=== PATIENT | female | born 1970 | race Hispanic/Latino ===

== ENCOUNTER 2017-09-20 17:31 | Observation (INO) | payer OTHER, SELFPAY ==
[~2017-09-20 17:31] MED LIST: ISOVUE-370 76%-LOCM 1 ML ONE
[2017-09-20] MEDS ORDERED: Fentanyl 100 MCG/2 ML VIAL ONE (17:44)
[2017-09-20 17:55] LABS: Hematocrit 36.4 % (36.0-47.0); Mean Platelet Volume 11.1 fL (7.4-10.4); White Blood Cell (WBC) Count 14.1 thou/uL (4.8-10.8)
[2017-09-20 18:04] LABS: PTT 22.9 SEC (22.9-36.1); Prothrombin Time 13.1 SEC (12.0-14.7)
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
[2017-09-20 18:17] LABS: ALT (SGPT) 79 U/L (8-55); AST (SGOT) 109 U/L (5-34); Alkaline Phosphatase 99 U/L (40-150); Anion Gap 14 mmol/L (10-20); BUN (Urea Nitrogen) 8 mg/dL (7.0-18.7); Bilirubin, Total 0.4 mg/dL (0.2-1.2); CK (CPK) 150 U/L (29-168); Calc. Creatinine Clearance 0 mL/min (70-130); Calcium 8.1 mg/dL (7.8-10.44); Carbon Dioxide 22 mmol/L (22-29); Chloride 103 mmol/L (98-107); Estimated GFR-MDRD 81; Globulin 4.2 g/dL (2.4-3.5); Lipase 10 U/L (8-78); Protein, Total 7.8 g/dL (6.0-8.3)
[2017-09-20] MEDS ORDERED: Ondansetron HCl/PF 4 MG/2 ML Vial ONE ×2 (18:19→18:20)
[2017-09-20] MEDS ORDERED: Adacel (T-DAP) 0.5 ML VIAL ONE (18:19)
[2017-09-20 18:20] LABS: #Basophils 0.1 thou/uL (0.0-0.2); #Eosinphils 0.2 thou/uL (0.0-0.7); #Lymphocytes 2.5 thou/uL (1.20-3.40); #Monocytes 0.6 thou/uL (0.11-0.59); #Neutrophils 10.6 thou/uL (1.40-6.50); %Basophils 0.9 % (0.0-1.0); %Eosinophils 1.6 % (0.0-10.0); %Lymphocytes 17.7 % (21.0-51.0); %Monocytes 4.4 % (0.0-10.0); Anisocytosis SLIGHT = 6-15 cells (100X) (0-5/hpf); Hypochromia SLIGHT = 6-15 cells (100X) (0-5/hpf); Microcytosis SLIGHT = 6-15 cells (100X) (0-5/hpf); Ovalocytes SLIGHT = 2-5 cells (100X) (0-1/hpf)
[2017-09-20 18:21] LABS: Troponin I Less than 0.010 ng/mL (< 0.028)
[2017-09-20] MEDS ORDERED: Lorazepam 2 MG/ML VIAL ONE (18:35)
[2017-09-20] MEDS ORDERED: Lidocaine 1% (PF) 30 ML VIAL ONE (18:35)
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
[2017-09-20] MEDS ORDERED: Ketorolac Tromethamine 30 MG/ML VIAL ONE (19:24)
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
[2017-09-20 19:59] LABS: Bilirubin Negative (Negative); Blood, Urine Negative (Negative); Glucose, Urine (Dipstick) >=1000 mg/dL (Negative); Ketone, Urine 40 mg/dL (Negative); Nitrite Negative (Negative); Protein, Urine (Dipstick) Negative (Neg-Trace); Urobilinogen 0.2 mg/dL (0.2-1.0)
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
[2017-09-20] MEDS ORDERED: Ondansetron ODT 4 MG TAB SL PRN (21:03)
[2017-09-20] MEDS ORDERED: Morphine 2 MG/ML SYRINGE SLOW IVP PRN ×3 (21:03→21:13)
[2017-09-20] MEDS ORDERED: Ondansetron HCl/PF 4 MG/2 ML Vial IVP PRN ×2 (21:03→21:13)
[2017-09-20] MEDS ORDERED: Dextrose 50% Abboject 50 ML SYRINGE SLOW IVP PRN (21:13)
[2017-09-20] MEDS ORDERED: Dextrose 5% in Water 1,000 ML IV PRN (21:13)
[2017-09-20] MEDS ORDERED: Ondansetron ODT 4 MG TAB PO PRN (21:13)
[2017-09-20] MEDS ORDERED: Rib Fracture Protocol IV SCH (21:13)
[2017-09-20] MEDS ORDERED: Sodium Chloride 0.9% 1,000 ML IV SCH (21:15)
[2017-09-20] MEDS ORDERED: Famotidine 20 MG TAB PO SCH (21:30)
[2017-09-20] MEDS: Sodium Chloride 0.9% 1,000 ML IV SCH (21:54)
[2017-09-20 22:21] VITALS: BMI 35.4
[2017-09-20] MEDS: Ketorolac Tromethamine 30 MG/ML VIAL IVP SCH (23:26)
[2017-09-20] MEDS: Acetaminophen 650 MG Suppository PR SCH (23:28)
[2017-09-21] MEDS: Ketorolac Tromethamine 30 MG/ML VIAL IVP SCH ×3 (05:36→18:52)
[2017-09-21] MEDS: Sodium Chloride 0.9% 1,000 ML IV SCH ×3 (05:37→20:30)
[2017-09-21] MEDS: HumaLOG 300 UNITS/3 ML VIAL SC PRN (06:26)
[2017-09-21] MEDS: Acetaminophen 650 MG Suppository PR SCH ×3 (06:37→18:52)
[2017-09-21 06:50] LABS: #Eosinphils 0.1 thou/uL (0.0-0.7); #Lymphocytes 1.8 thou/uL (1.20-3.40); #Monocytes 0.5 thou/uL (0.11-0.59); #Neutrophils 6.2 thou/uL (1.40-6.50); %Basophils 0.4 % (0.0-1.0); %Eosinophils 0.6 % (0.0-10.0); %Lymphocytes 20.6 % (21.0-51.0); %Monocytes 5.4 % (0.0-10.0); Hematocrit 30.2 % (36.0-47.0); Mean Platelet Volume 10.9 fL (7.4-10.4); Red Blood Cell (RBC) Count 4.54 mill/uL (4.20-5.40); White Blood Cell (WBC) Count 8.5 thou/uL (4.8-10.8)
[2017-09-21 07:08] LABS: Anion Gap 9 mmol/L (10-20); BUN (Urea Nitrogen) 5 mg/dL (7.0-18.7); Calc. Creatinine Clearance 163 mL/min (70-130); Calcium 7.7 mg/dL (7.8-10.44); Carbon Dioxide 22 mmol/L (22-29); Chloride 107 mmol/L (98-107); Estimated GFR-MDRD Greater than 90
[2017-09-21 07:29] LABS: Hypochromia MODERATE=16-30 cells (100X) (0-5/hpf); Microcytosis MODERATE=15-30 cells (100X) (0-5/hpf); Ovalocytes SLIGHT = 2-5 cells (100X) (0-1/hpf); Polychromasia SLIGHT = 2-3 cells (100X) (0-2/hpf)
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
[2017-09-21] MEDS ORDERED: FLU VACC QS2017-18 36 mo. & older 0.5 ML SYRINGE IM ONE (09:00)
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
[2017-09-21] MEDS: Famotidine 20 MG TAB PO SCH ×2 (10:54→21:14)
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
[2017-09-21] MEDS ORDERED: Fentanyl 100 MCG/2 ML VIAL ONE ×2 (17:32→19:49)
[2017-09-21] MEDS ORDERED: Midazolam HCl 2 mg/2 ml Vial ONE (17:39)
[2017-09-21] MEDS ORDERED: Ondansetron HCl/PF 4 MG/2 ML Vial ONE (18:08)
[2017-09-21] MEDS ORDERED: Glycopyrrolate 0.2 MG/ML 5 ML SYRINGE ONE (18:08)
[2017-09-21] MEDS ORDERED: Lidocaine 2% PF 10 ML AMP (For Epidural Use) ONE (18:08)
[2017-09-21] MEDS ORDERED: Propofol 200 MG/20 ML VIAL ONE (18:08)
[2017-09-21] MEDS ORDERED: Dexamethasone 20 MG/5 ML VIAL ONE (18:08)
[2017-09-21] MEDS ORDERED: Promethazine HCl 25 MG/ML VIAL SLOW IVP PRN (19:25)
[2017-09-21] MEDS ORDERED: Ondansetron HCl/PF 4 MG/2 ML Vial IVP PRN (19:25)
[2017-09-21] MEDS ORDERED: Promethazine HCl 25 MG/ML VIAL IM PRN (19:25)
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
[2017-09-21] MEDS: CEFAZOLIN/Water 2 GM/20 ML SYRINGE SLOW IVP SCH (22:31)
[2017-09-22] MEDS: Ketorolac Tromethamine 30 MG/ML VIAL IVP SCH ×2 (00:52→06:13)
[2017-09-22] MEDS: Acetaminophen 650 MG Suppository PR SCH ×2 (00:52→06:11)
[2017-09-22] MEDS: HumaLOG 300 UNITS/3 ML VIAL SC PRN ×3 (00:57→11:07)
[2017-09-22] MEDS: CEFAZOLIN/Water 2 GM/20 ML SYRINGE SLOW IVP SCH (06:14)
[2017-09-22] MEDS: Sodium Chloride 0.9% 1,000 ML IV SCH ×2 (06:19→14:13)
[2017-09-22] MEDS: Ibuprofen 600 MG TAB PO SCH ×2 (07:12→14:17)
[2017-09-22] MEDS: Acetaminophen 500 MG TAB PO SCH ×2 (07:12→14:13)
[2017-09-22] MEDS: traMADol HCl 50 MG TAB PO SCH ×2 (07:12→14:12)
[2017-09-22] MEDS ORDERED: metFORMIN 500 MG TAB PO SCH (08:00)
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
[2017-09-22] MEDS: Famotidine 20 MG TAB PO SCH (08:56)
[2017-09-22] MEDS ORDERED: HYDROcodone/Acetaminophen 10/325 mg Tablet PO PRN ×2 (10:30)
[2017-09-22 15:46] VITALS: BP 107/72; TEMP 98.1
--- NOTE | 2017-09-30 16:46 | EKG ---
Test Reason : Blood Pressure : / mmHG Vent. Rate : 086 BPM Atrial Rate : 086 BPM P-R Int : 150 ms QRS Dur : 092 ms QT Int : 414 ms P-R-T Axes : 042 -73 034 degrees QTc Int : 495 ms Normal sinus rhythm Left anterior fascicular block Prolonged QT Abnormal ECG Confirmed by RITA URIAS, ESTHER ([id number]), greeting card editor CORINNE BRITO ([id number]) on 09/30/2017 4:46:01 PM Referred By: Confirmed By:ESTHER SALINAS MD
== END 2017-09-22 16:52 | disposition home or self-care (01) ==
LOC: ERS 17:31 → SURG B 20:34
PROVIDERS: ADMIT Surgery; ATTEND Surgery
PROC: 0PSH04Z Reposition Right Radius with Internal Fixation Device, Open Approach (ICD-10-PCS; principal; 2017-09-20)
DX: S52.571A Other intraarticular fracture of lower end of right radius, initial encounter for closed fracture (principal); S22.41XA Multiple fractures of ribs, right side, initial encounter for closed fracture; E11.65 Type 2 diabetes mellitus with hyperglycemia; E66.01 Morbid (severe) obesity due to excess calories; V47.5XXA Car driver injured in collision with fixed or stationary object in traffic accident, initial encounter; Y92.488 Other paved roadways as the place of occurrence of the external cause; Z68.35 Body mass index [BMI] 35.0-35.9, adult; Z79.84 Long term (current) use of oral hypoglycemic drugs; Z98.890 Other specified postprocedural states
CPT/HCPCS: 36415; 36416; 51701; 70450; 71010; 71260; 72125; 74177; 76001; 80048; 80053; 81003; 82550; 82553; 83690; 84484; 84703; 85025; 85610; 85730; 90471; 90715; 93005; 94640; 94760; 96361; 96374; 96375; 96376; A4353; C1713; G0378; G0390; G8978-GP-CL; G8979-GP-CJ; G8987-GO-CI; G8988-GO-CI; G8989-GO-CI; J1100; J1170; J1885; J2001; J2060; J2250; J2270; J2405; J2704; J3010; J7620